=== PATIENT | female | born 2000 | race Hispanic/Latino ===

== ENCOUNTER 2019-09-02 12:27 | Inpatient (IN) | payer MEDICAID, OTHER, SELFPAY ==
--- NOTE | 2019-09-02 13:19 | RAD ---
EXAM: Single view of the chest HISTORY: Weakness and bilateral hand tingling COMPARISON: None FINDINGS: Single view of the chest shows a normal sized cardiomediastinal silhouette. There is no elizabeth dence of consolidation, mass, or pleural effusion. The bones are unremarkable. IMPRESSION: No evidence of acute cardiopulmonary disease
[2019-09-02 13:45] LABS: #Basophils 0.1 thou/uL (0.0-0.2); #Lymphocytes 2.9 thou/uL (1.20-3.40); #Monocytes 0.7 thou/uL (0.11-0.59); #Neutrophils 9.7 thou/uL (1.40-6.50); %Basophils 0.5 % (0.0-1.0); %Eosinophils 0.2 % (0.0-10.0); %Lymphocytes 21.7 % (28.0-48.0); %Monocytes 4.9 % (0.0-4.0); %Neutrophils 72.6 % (31.0-61.0); Hemoglobin 14.9 g/dL (12.0-16.0); Mean Corpuscular HGB CONC 34.4 g/dL (32.0-36.0); Mean Corpuscular Hemoglobin 30.9 pg (25.0-35.0); Mean Corpuscular Volume 89.7 fL (78.0-98.0); Mean Platelet Volume 6.3 fL (7.4-10.4); Platelet Count 377 thou/uL (130-400); RBC Distribution Width 11.2 % (11.5-14.5); Red Blood Cell (RBC) Count 4.82 mill/uL (4.00-5.20); White Blood Cell (WBC) Count 13.3 thou/uL (4.8-10.8)
[2019-09-02 14:08] LABS: Acetaminophen Less than 6.0 mcg/mL (10.0-30.0); Alcohol Less than 10 mg/dL (Less than 10); Salicylate Less than 8.0 mg/dL (15.0-30.0)
[2019-09-02 14:09] LABS: ALT (SGPT) 12 U/L (8-55); AST (SGOT) 12 U/L (5-34); Albumin 4.6 g/dL (3.5-5.0); Alkaline Phosphatase 88 U/L (40-100); Anion Gap 13 mmol/L (10-20); BUN (Urea Nitrogen) 7 mg/dL (7.0-18.7); Bilirubin, Total 0.3 mg/dL (0.2-1.2); CK (CPK) 111 U/L (29-168); Calc. Creatinine Clearance 0 mL/min (70-130); Calcium 9.9 mg/dL (7.8-10.44); Carbon Dioxide 27 mmol/L (22-29); Chloride 102 mmol/L (98-107); Estimated GFR-MDRD 79; Globulin 4.7 g/dL (2.4-3.5); Glucose 91 mg/dL (70-105); Lipase 16 U/L (8-78); Potassium 3.9 mmol/L (3.5-5.1); Protein, Total 9.3 g/dL (6.0-8.3); Sodium 138 mmol/L (136-145)
[2019-09-02 14:10] LABS: BHCG - Serum Negative (NEGATIVE); Pregs Control Background? CLEAR/WHITE (CLR/WHITE); Pregs Control Bar Appear? YES (CONTROL BAR)
[2019-09-02 15:07] LABS: Bilirubin Negative (Negative); Blood, Urine Trace (Negative); Clarity Turbid (Clear); Glucose, Urine (Dipstick) Normal (Negative); Leukocyte Negative Leu/uL (Negative); Nitrite Negative (Negative); Protein, Urine (Dipstick) Negative (Neg-Trace); RBC/HPF 0-3 HPF (0-3); Squamous Epithelial 0-3 HPF (0-3); Urobilinogen Normal mg/dL (Less than 2); WBC/HPF 0-3 HPF (0-3)
[2019-09-02 15:11] LABS: Amphetamine Not Detected (NotDetected); Barbiturates Screen Not Detected (NotDetected); Benzodiazepine Screen Not Detected (NotDetected); Cocaine Metabolite Screen Not Detected (NotDetected); Medtox Control Line Valid? VALID (VALID); Medtox Reader # READER 1; Methadone Not Detected (NotDetected); Methamphetamine Not Detected (NotDetected); Opiate Screen Not Detected (NotDetected); Oxycodone Screen Not Detected (NotDetected); Phencyclidine (PCP) Not Detected (NotDetected); THC/Cannabinoid Screen Not Detected (NotDetected); Tricyclic Screen Not Detected (NotDetected)
[2019-09-02 15:12] LABS: Bacteria/HPF 1+ HPF (None Seen)
--- NOTE | 2019-09-02 21:51 | HP ---
CHIEF COMPLAINT: Numbness in both lower extremities and numbness in both hands. HISTORY OF PRESENT ILLNESS: The patient is a 19-year-old female, who started having some numbness in her lower extremities yesterday and this was not associated with any other problems. She was able to walk. She did not have any fever, chills, cough, or any respiratory tract infection recently. She had heavy periods 3 days ago, which lasted up to 6 days. It was heavier than normal. She woke up this morning with even a numbness in her both feet and she still had the numbness in both lower extremities, which was more pronounced in her both feet. She never had this problem before. She was alarmed about the presentation of those findings and came to the emergency room looking for some medical attention. PAST MEDICAL HISTORY: Positive for migraine headaches, and the last headache she had just a few days ago, which lasted 3 days. PAST SURGICAL HISTORY: None. MEDICATIONS: None. ALLERGIES: NONE. FAMILY HISTORY: Father has hyperlipidemia. Mother is healthy. SOCIAL HISTORY: She drinks alcohol occasionally. She does not smoke. She does not use any illicit drugs. REVIEW OF SYSTEMS: She has heavy periods lasting up to 6 days and she has migraine headaches. All the rest of 14 systems were reviewed and they were negative. PHYSICAL EXAMINATION: GENERAL: She is not in any distress during my visit. VITAL SIGNS: Her blood pressure is 132/90, pulse is 82, she is afebrile, respirations 14. HEENT: Her head is atraumatic and normocephalic. Eyes are PERRLA. Sclerae are nonicteric. Oral mucosa is moist. NECK: Supple. LUNGS: Clear. HEART: S1, S2 normal. No S3. No S4. No any murmur. ABDOMEN: Soft, obese, nontender. Bowel sounds are present. No organomegaly. EXTREMITIES: No clubbing, cyanosis, or edema. She has good pulses on both tibialis posterior and dorsalis pedis arteries similar bilaterally. NEUROLOGICAL: She is alert and oriented x4. There is a decreased sensation in both feet and both hands in [id number] distribution. There is mild weakness in the left thigh compared to the right thigh. She is able to walk with some difficulties complaining about the problem with her both calves. LABORATORY DATA: White count of 13.3, hemoglobin of 14.9, hematocrit 43.3, platelet count is 377, neutrophils 72.6, lymphocytes 21.7, monocytes of 4.9. Normal chemistry except for serum total protein 9.3, which is high. Albumin 4.6, which is normal. Globulin 4.7, which is high, normal is up to 3.5, and albumin to globulin ratio is 1.0. Lipase is 16. TSH is 0.49 and serum test is negative. Urinalysis showed turbid clarity, trace of blood, 1+ amorphous crystals, and 1+ urine bacteria. Otherwise, urinalysis is within normal limits. Toxicology is negative. Plasma alcohol is less than 10 IMAGING STUDIES: Chest x-ray personally reviewed by me, it did not show any acute evidence of cardiopulmonary disease. IMPRESSION: 1. Sudden onset of neuropathy involving both lower extremities and both hands, with some weakness in the left thigh and probably in bilateral calves. Deep tendon reflexes are not there. 2. Elevated total protein in serum and elevated globulin. This is an unclear etiology. PLAN: Plan is to admit her to the Stroke Unit. Condition is fair. Activity is bedrest and bathroom privileges with some assistance, IV Hep-Lock. Serum protein electrophoresis. Neurology consultation with Dr. Benitez who is on-call today and DVT prophylaxis with Lovenox 40 mg subcutaneously every 24 hours. Job ID: [id number]
[2019-09-02] MEDS ORDERED: OCTAGAM IVPB SCH (22:00)
[2019-09-03 00:50] VITALS: BMI 35.9
[2019-09-03 04:56] LABS: #Eosinphils 0.1 thou/uL (0.0-0.7); #Monocytes 0.8 thou/uL (0.11-0.59); #Neutrophils 3.4 thou/uL (1.40-6.50); %Basophils 0.6 % (0.0-1.0); %Eosinophils 1.7 % (0.0-10.0); %Lymphocytes 40.8 % (28.0-48.0); %Monocytes 10.4 % (0.0-4.0); %Neutrophils 46.5 % (31.0-61.0); Hemoglobin 12.2 g/dL (12.0-16.0); Mean Corpuscular HGB CONC 33.8 g/dL (32.0-36.0); Mean Corpuscular Hemoglobin 30.4 pg (25.0-35.0); Mean Corpuscular Volume 90.1 fL (78.0-98.0); Mean Platelet Volume 6.4 fL (7.4-10.4); Platelet Count 331 thou/uL (130-400); RBC Distribution Width 11.2 % (11.5-14.5); Red Blood Cell (RBC) Count 4.01 mill/uL (4.00-5.20); White Blood Cell (WBC) Count 7.4 thou/uL (4.8-10.8)
[2019-09-03] MEDS: Enoxaparin Sodium 40 MG/0.4 ML SYRINGE SC SCH (08:58)
[2019-09-03] MEDS: Acetaminophen 325 MG TAB PO PRN (08:58)
--- NOTE | 2019-09-03 10:20 | CON ---
DATE OF CONSULTATION: 09/03/2019 CONSULTING PHYSICIAN: Hospitalist Service. IMPRESSION: Guillain-[place] syndrome. PLAN: 1. Complete IVIG therapy. 2. The patient can be discharged if she is ambulatory. HISTORY OF PRESENT ILLNESS: Ms. Shepherd is a 19-year-old female with no significant problems. She started noticing some tingling in her feet three days ago. By the next day, she had some tingling in her hands. She started to note some mild weakness. She came to the hospital for evaluation. She was noted to be areflexic. She was started on gammaglobulin yesterday. Her lab work was otherwise normal. She denies any prodromal illness. She is having paresthesias in the hands and feet that are somewhat bothersome. PAST MEDICAL HISTORY: Otherwise negative. ALLERGIES: NONE. SOCIAL HISTORY: No tobacco or alcohol. FAMILY HISTORY: Noncontributory. MEDICINES: None. REVIEW OF SYSTEMS: A 10-system review of systems otherwise negative. PHYSICAL EXAMINATION: GENERAL: She is a well-nourished young woman, in no acute distress. VITAL SIGNS: Blood pressure 128/68, pulse 84, respirations 16, and temperature 98.1. HEENT: Pupils are equal and reactive. Conjunctivae clear. Oropharynx clear. Cranium, normocephalic and atraumatic. NECK: Supple. No lymphadenopathy. EXTREMITIES: No cyanosis or edema. NEUROLOGIC: She was alert and cooperative. Her speech is fluent and clear. Cranial nerves were intact. 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 Sensation was intact proprioception, but alter to light touch. No abnormal movements were seen. Gait was not tested. SUMMARY: This is a young woman, who presented with a sensory motor neuropathy pattern of symptoms consistent with a recent run of similar illnesses that we have been seeing in town this year. She has been started on gammaglobulin and hopefully will turn the corner shortly. I would be happy to follow up with her as an outpatient. Job ID: [id number]
--- NOTE | 2019-09-03 10:36 | PRG ---
DATE OF SERVICE: 09/03/2019 SUBJECTIVE: The patient is seen and examined at the bedside. She does not have much more complaints to offer. There is not much change since yesterday as she still has the same distribution, gloves and socks, numbness. She received her first dose of IVIG last night. OBJECTIVE: VITAL SIGNS: Blood pressure is 128/68, pulse is 84, temperature is 98.1, respiratory rate is 16, O2 saturation is 99% on room air. HEENT: Her head is atraumatic and normocephalic. Eyes are PERRLA. Sclerae are nonicteric. Oral mucosa is moist. NECK: Supple. LUNGS: Clear. HEART: S1 and S2 normal. No S3. No S4. ABDOMEN: Obese, soft, nontender. EXTREMITIES: No clubbing, cyanosis, or edema. NEUROLOGICAL: She is alert and oriented x4. There is decreased sensation in the peripheral parts of her body like hands and feet with mild involvement of the thighs and calves. There is mild general weakness in the lower extremities, which is probably 4/5 bilaterally similar. Deep tendon reflexes are not present. LABORATORY DATA: Normal CBC. IMPRESSION: 1. 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 2. Elevated total protein serum and elevated globulin. We will do serum protein electrophoresis to evaluate this finding. PLAN: The patient received first dose of IVIG yesterday. The case was discussed with Dr. Benitez and neurologist on-call yesterday, and she is going to have a second dose of IVIG tonight. We will do electrophoresis on her serum, and we will continue DVT prophylaxis. Job ID: [id number]
[2019-09-03] MEDS: Gabapentin 300 MG CAP PO SCH ×2 (13:53→22:18)
[2019-09-03] MEDS ORDERED: OCTAGAM IVPB SCH (21:30)
[2019-09-04] MEDS: Enoxaparin Sodium 40 MG/0.4 ML SYRINGE SC SCH (08:13)
[2019-09-04] MEDS: Gabapentin 300 MG CAP PO SCH ×3 (08:13→21:13)
[2019-09-04 12:19] LABS: Bilirubin Negative (Negative); Blood, Urine Trace (Negative); Clarity Turbid (Clear); Glucose, Urine (Dipstick) 500 mg/dL (Negative); Leukocyte Negative Leu/uL (Negative); Nitrite Negative (Negative); Protein, Urine (Dipstick) Negative (Neg-Trace); RBC/HPF 0-3 HPF (0-3); Urobilinogen Normal mg/dL (Less than 2); WBC/HPF 0-3 HPF (0-3)
[2019-09-04 12:31] LABS: Bacteria/HPF 2+ HPF (None Seen)
[2019-09-04 12:32] LABS: Urine Culture Reflex No No
--- NOTE | 2019-09-04 17:20 | PDOC.HOSPP ---
- Subjective Encounter Date: 09/04/19 Encounter Time: 11:18 Subjective: 19 y/o fe,ramila admitted with ascending and progressive numbness and weakness. 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 Patient reports no significant improvement but denioed worsening of symptoms. Get tachycardic and SOB with minimal exertion. Also complains of urinary frequency and urgency - Objective Vital Signs & Weight: Vital Signs (12 hours) Temp Pulse Pulse Pulse Resp BP BP 09/04/19 15:29 98.6 F 112 H 28 H 09/04/19 11:47 97.9 F 118 H 13 09/04/19 09:40 111 H 102 H 136/76 131/67 09/04/19 08:08 09/04/19 07:23 97.8 F 94 19 BP Pulse Ox 09/04/19 15:29 132/80 98 09/04/19 11:47 137/76 98 09/04/19 09:40 09/04/19 08:08 98 09/04/19 07:23 123/66 98 Weight Admit Weight 189 lb 12.8 oz Weight 189 lb 12.8 oz I&O: 09/03/19 09/04/19 09/05/19 06:59 06:59 06:59 Intake Total 960 Balance 960 Result Diagrams: 09/03/19 04:23 09/02/19 13:34 Hospitalist ROS - Medication Medications: Active Medications Generic Name Dose Route Start Last Admin Trade Name Freq PRN Reason Stop Dose Admin Acetaminophen 650 mg 09/02/19 16:21 09/03/19 08:58 Tylenol PO 650 mg Q4H PRN Administration Headache/Fever/Mild Pain (1-3) Enoxaparin Sodium 40 mg 09/03/19 09:00 09/04/19 08:13 Lovenox SC 40 mg 0900 JOE Administration Gabapentin 300 mg 09/03/19 15:00 09/04/19 14:15 Neurontin PO 300 mg TID JOE Administration - Exam General Appearance: awake alert Eye: PERRL, anicteric sclera ENT: normocephalic atraumatic Neck: symmetric, no JVD Heart: RRR Respiratory: no wheezes, no rales, no ronchi, normal chest expansion Gastrointestinal: soft, non-tender, non-distended, normal bowel sounds Extremities: no cyanosis, no edema Neurological: cranial nerve grossly intact, no focal deficits Neurological - other findings: subjective decreased sensation of the lower extremities Musculoskeletal: generalized weakness Psychiatric: A&O x 3 Hosp A/P (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 rehab assessment.
[2019-09-05 05:17] LABS: #Basophils 0.1 thou/uL (0.0-0.2); #Lymphocytes 2.5 thou/uL (1.20-3.40); #Monocytes 0.9 thou/uL (0.11-0.59); #Neutrophils 6.2 thou/uL (1.40-6.50); %Basophils 0.6 % (0.0-1.0); %Eosinophils 0.5 % (0.0-10.0); %Lymphocytes 26.1 % (28.0-48.0); %Monocytes 9.2 % (0.0-4.0); %Neutrophils 63.7 % (31.0-61.0); Hemoglobin 12.8 g/dL (12.0-16.0); Mean Corpuscular HGB CONC 33.3 g/dL (32.0-36.0); Mean Corpuscular Hemoglobin 29.7 pg (25.0-35.0); Mean Corpuscular Volume 89.3 fL (78.0-98.0); Mean Platelet Volume 6.3 fL (7.4-10.4); Platelet Count 361 thou/uL (130-400); RBC Distribution Width 11.2 % (11.5-14.5); Red Blood Cell (RBC) Count 4.31 mill/uL (4.00-5.20); White Blood Cell (WBC) Count 9.7 thou/uL (4.8-10.8)
[2019-09-05 06:00] LABS: ALT (SGPT) 13 U/L (8-55); AST (SGOT) 14 U/L (5-34); Albumin 3.7 g/dL (3.5-5.0); Alkaline Phosphatase 65 U/L (40-100); Anion Gap 12 mmol/L (10-20); BUN (Urea Nitrogen) 10 mg/dL (7.0-18.7); Bilirubin, Total 0.4 mg/dL (0.2-1.2); Calc. Creatinine Clearance 160 mL/min (70-130); Calcium 9.4 mg/dL (7.8-10.44); Carbon Dioxide 24 mmol/L (22-29); Chloride 103 mmol/L (98-107); Estimated GFR-MDRD Greater than 90; Globulin 6.3 g/dL (2.4-3.5); Glucose 88 mg/dL (70-105); Potassium 3.7 mmol/L (3.5-5.1); Sodium 135 mmol/L (136-145)
[2019-09-05] MEDS: Enoxaparin Sodium 40 MG/0.4 ML SYRINGE SC SCH (09:33)
[2019-09-05] MEDS: Gabapentin 300 MG CAP PO SCH ×3 (09:35→22:12)
[2019-09-05] MEDS ORDERED: Bisacodyl 10 MG SUPP PR PRN (12:36)
[2019-09-05 13:10] LABS: A/G Ratio 0.6 (0.7-1.7); Albumin 3.2 g/dL (2.9-4.4); Alpha 1 0.2 g/dL (0.0-0.4); Alpha 2 0.8 g/dL (0.4-1.0); Beta 1.1 g/dL (0.7-1.3); Gamma 3.5 g/dL (0.4-1.8); Globulin, Total 5.7 g/dL (2.2-3.9); M-Spike Not Observed g/dL (Not Observed)
--- NOTE | 2019-09-05 14:08 | CON ---
DATE OF CONSULTATION: 09/05/2019 REASON FOR CONSULTATION: Urinary retention HISTORY OF PRESENT ILLNESS: Ms. Shepherd is a 19-year-old female, Danish-speaking, with no significant past medical history, who presented with 3 -day history of neurologic deficit of tingling of her upper extremities, weakness of her lower extremities and abnormal gait. The patient has been seen by Neurology, is treated for presumed Guillain-[place], currently on IVIG. She was found to have urinary retention per nursing staff. She voided 100, PVR of over 1000 and was advised regarding CIC. She denies prior history of urinary retention. However, does relate history of constipation, family at bedside. She denies prior prodromal illnesses, viral illnesses. Denies prior history of urinary retention. PAST MEDICAL HISTORY: Negative. PAST SURGICAL HISTORY: None. ALLERGIES: NO KNOWN DRUG ALLERGIES. SOCIAL HISTORY: Negative. REVIEW OF SYSTEMS: Ten-point review of systems as above, otherwise noncontributory. PHYSICAL EXAMINATION: VITAL SIGNS: Stable. Urine output 660 per nursing staff, PVR CIC is greater than 1000. GENERAL: The patient appears to be in no acute distress. Family at bedside. HEENT: Grossly unremarkable. HEART: Regular rate. LUNGS: Clear. ABDOMEN: Morbidly obese, protuberant. GENITOURINARY: Demonstrates unremarkable. PELVIC: With no evidence of prolapse. EXTREMITIES: No cyanosis, clubbing, or edema. NEUROLOGIC: She does have an abnormal gait, weakness of her lower extremity is noted. PSYCHIATRIC: Appears to be appropriate and intact. PERTINENT LABORATORY DATA: Currently, white count 9.7, hemoglobin 12, and platelet 261. Creatinine 0.78. There are 2 UAs on admission on September 02 demonstrates 0 to 3 rbc's, 1+ bacteria. Repeat urine culture, I do not know why there is another repeat UA, however, this is likely a catheterized specimen, 500 glucose, trace leukocytes, 7 to 10 epithelials, 2+ bacteria, contaminated specimen. IMAGING DATA: There is no imaging of record. IMPRESSION AND PLAN: 1. Ms. Shepherd is a 19-year-old female with no significant past medical history, who presents with acute onset of neurologic deficit with urinary retention. 2. Constipation. Aggressive bowel regimen is advised. As she has significant PVR over 1 L, I do not recommend CIC. She needs bladder rest with indwelling urethral Damico catheter to gravity. At a later date, I will initiate a voiding trial. If subsequent failure, she will be transitioned to CIC. Please rule out such things as multiple sclerosis, neurologic workup in progress. Consideration for MRI. Aggressive bowel regimen advised. Continue indwelling Damico catheter. We will follow urine culture. Contaminated urine culture does not need to be treated. Renal ultrasound advised. Job ID: [id number] MTDD
--- NOTE | 2019-09-05 15:02 | ULT ---
US Renal Bilateral STANDARD History: Urinary retention Comparison: None. Findings: Real-time grayscale and color evaluation of the kidneys and urinary bladder was performed. Right kidney measures 12.1 x 3.8 x 5.9 cm and the left kidney measures 10.8 x 5 x 6.2 cm. Urinary paula dder is decompressed with Damico catheter. No renal mass, hydronephrosis, or abnormal calcifications. Impression: No evidence for obstructive uropathy.
--- NOTE | 2019-09-05 19:20 | CON ---
DATE OF CONSULTATION: REASON FOR CONSULTATION: Tachycardia. HISTORY OF PRESENT ILLNESS: Ms. Shepherd is a pleasant 19-year-old woman, who recently was diagnosed with Guillain-[place] syndrome. She has had issues with tachycardia noted with little ambulation. She states she does have mild dizziness during these episodes. No chest pain, pressure, or associated symptoms. She states her numbness from the Guillain-[place] appears to slowly be improving. PAST MEDICAL HISTORY: Migraine headaches. PAST SURGICAL HISTORY: None. MEDICATIONS: None. ALLERGIES: NONE. SOCIAL HISTORY: No current tobacco or alcohol use. REVIEW OF SYSTEMS: A 10-point review of systems is reviewed as above, otherwise negative. PHYSICAL EXAMINATION: GENERAL: Patient is a pleasant woman, who is in no acute distress. The patient appears their stated age. VITAL SIGNS: Blood pressure 120/60, pulse 98, and temperature 99.3. NEUROLOGIC: The patient is alert and oriented x3 with no focal neurologic deficits. HEENT: Sclerae without icterus. Mouth has moist mucous membranes with normal pallor. NECK: No JVD. Carotid upstroke brisk. No bruits bilaterally. LUNGS: Clear to auscultation with unlabored respirations. BACK: No scoliosis or kyphosis. CARDIAC: Regular rate and rhythm with normal S1 and S2. No S3 or S4 noted. No significant rubs, murmurs, thrills, or gallops noted throughout the precordium. PMI is not displaced. There is no parasternal heave. ABDOMEN: Soft, nontender, nondistended. No peritoneal signs present. No hepatosplenomegaly. No abnormal striae. EXTREMITIES: 2+ femoral and 2+ dorsalis pedis pulses. No cyanosis, clubbing, or edema. SKIN: No gross abnormalities. PERTINENT LABORATORY DATA: Hemoglobin 12.8 and hematocrit 38.5. Creatinine 0.76. IMPRESSION: 1. Tachycardia. 2. Guillain-[place] syndrome. RECOMMENDATIONS: Certainly unknown complications with Guillain-[place] syndrome on autonomic dysfunction. Most common dysrhythmia is sinus tachycardia. She does appear to have mild symptoms. We will discuss case with Dr. Keith Benitez. We will place on low-dose beta-stanlye therapy, but we will need to be careful with bradycardia. We will observe overnight. Overall, LVEF has appeared normal on recent echo. As her Guillain-[place] syndrome improve so too will her rhythm. Job ID: [id number]
--- NOTE | 2019-09-05 20:35 | PDOC.HOSPP ---
- Subjective Subjective: She reports that she is urinating just a bit at a time, also that her numbness is restricted to her hands and feet, her numbness is persisting, otherwise she has no sob. - Objective Vital Signs & Weight: Vital Signs (12 hours) Temp Pulse Pulse Pulse Resp BP BP 09/05/19 15:14 99.3 F 98 16 09/05/19 11:33 97 106 H 134/66 129/60 09/05/19 11:10 98.1 F 95 20 09/05/19 09:27 09/05/19 08:56 106 H 103 H 139/73 139/81 BP Pulse Ox 09/05/19 15:14 121/60 99 09/05/19 11:33 09/05/19 11:10 127/78 97 09/05/19 09:27 97 09/05/19 08:56 Weight Admit Weight 189 lb 12.8 oz Weight 189 lb 12.8 oz I&O: 09/04/19 09/05/19 09/06/19 06:59 06:59 06:59 Intake Total 960 660 880 Output Total 1975 Balance 960 660 1095 Result Diagrams: 09/05/19 04:50 09/05/19 04:50 Hospitalist ROS - Medication Medications: Active Medications Generic Name Dose Route Start Last Admin Trade Name Andrew PRN Reason Stop Dose Admin Acetaminophen 650 mg 09/02/19 16:21 09/03/19 08:58 Tylenol PO 650 mg Q4H PRN Administration Headache/Fever/Mild Pain (1-3) Enoxaparin Sodium 40 mg 09/03/19 09:00 09/05/19 09:33 Lovenox SC 40 mg 0900 JOE Administration Gabapentin 300 mg 09/03/19 15:00 09/05/19 15:27 Neurontin PO 300 mg TID JOE Administration - Exam General Appearance: awake alert Eye: PERRL ENT: normocephalic atraumatic Neck: supple, symmetric Heart: RRR Respiratory: CTAB Gastrointestinal: soft, non-tender, non-distended Extremities: no cyanosis Neurological: speech deficit Neurological - other findings: slight weakness of LE Hosp A/P - Plan (1) 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 rehab assessment. plan for 09/05 persistent numbness, will continue neurontin and follow neuro recommendation urinary retention, a urology consult was requested. episode of tachycardia, most likely autonomic syndrome, patient is asymptomatic , echo done, Cardio consult requested.
[2019-09-05] MEDS: Docusate 100 MG CAP PO SCH (22:12)
--- NOTE | 2019-09-06 00:44 | PRG ---
DATE OF SERVICE: 09/05/2019 Ms. Shepherd continues to report some generalized weakness. The intensity of the paresthesias is much better. She still feels numb in her extremities. She was noted to have urinary retention. A Damico catheter had to be placed. She becomes tachycardic easily with exertion. She was able to walk with a roller walker today. On exam, she is still getting 4- out of 5 strength in all 4 extremities in a fairly diffuse pattern. Her treatment has been completed and autonomic dysfunction superimposed on her weakness, which complicates her recovery. She does not have any insurance to cover rehab. Therefore, she may have to be monitored here for a bit longer and then dealt with by her family. Job ID: [id number] [facility]
[2019-09-06 05:34] LABS: Anion Gap 14 mmol/L (10-20); BUN (Urea Nitrogen) 10 mg/dL (7.0-18.7); Calc. Creatinine Clearance 165 mL/min (70-130); Calcium 9.5 mg/dL (7.8-10.44); Carbon Dioxide 24 mmol/L (22-29); Chloride 103 mmol/L (98-107); Estimated GFR-MDRD Greater than 90; Glucose 81 mg/dL (70-105); Potassium 3.9 mmol/L (3.5-5.1); Sodium 137 mmol/L (136-145)
--- NOTE | 2019-09-06 08:42 | PRG ---
DATE OF SERVICE: 09/06/2019 SUBJECTIVE: Ms. Shepherd is doing better. She states her numbness continues to improve. Heart rate remains in the 80s. She does have increased heart rate noted with little exertion. OBJECTIVE: VITAL SIGNS: Blood pressure 106/56, pulse 82, temperature 98.1. LUNGS: Clear to auscultation. HEART: Regular rate and rhythm. ABDOMEN: Soft, nontender, nondistended. EXTREMITIES: No edema. IMPRESSION: 1. Guillain-[place] syndrome. 2. Sinus tachycardia with little ambulation. 3. Autonomic dysfunction. RECOMMENDATIONS: I discussed the case with Dr. Keith Benitez. Her main issue is tachycardia with little exertion. She has no episodes of bradycardia. I would therefore recommend low-dose metoprolol 12.5 mg p.o. b.i.d. There was risk of bradycardia with most common dysrhythmia from Guillain-[place] syndrome from an autonomic dysfunction standpoint is tachycardia. We will continue to monitor closely. If she does develop bradycardia, we then discontinue metoprolol. Otherwise, I have no further recommendations. If tolerates the beta stanley, would be okay from my standpoint to discharge home with outpatient followup. Job ID: [id number]
--- NOTE | 2019-09-06 08:57 | PRG ---
DATE OF SERVICE: 09/06/2019 SUBJECTIVE: The patient without complaints. OBJECTIVE: VITAL SIGNS: Stable. Urine output 1975. ABDOMEN: Soft, nontender, nondistended. No rigidity. No rebound. Renal ultrasound negative for hydronephrosis. IMPRESSION AND PLAN: Ms. Shepherd is a 19-year-old female with likely Guillain- [place], presents with neurologic deficit with acute urinary retention of PVR of 1 L. Due to significant PVR, indwelling Damico catheter placed. Continue Damico for now. She will require bladder rest due to significant PVR. Pending clinical course, we will initiate voiding trial in a few days versus outpatient. Urine culture negative. We will follow. Job ID: [id number] MTDD
[2019-09-06] MEDS: Gabapentin 300 MG CAP PO SCH ×3 (09:12→20:43)
[2019-09-06] MEDS: Docusate 100 MG CAP PO SCH ×2 (09:12→20:43)
[2019-09-06] MEDS: Metoprolol Tartrate 25 MG TAB PO SCH ×2 (09:12→20:43)
[2019-09-06] MEDS: Enoxaparin Sodium 40 MG/0.4 ML SYRINGE SC SCH (09:12)
--- NOTE | 2019-09-06 13:43 | PDOC.HOSPP ---
- Subjective Subjective: feels ok, she was concerned about a bit/streaks of blood in the urine. - Objective Vital Signs & Weight: Vital Signs (12 hours) Temp Pulse Resp BP Pulse Ox 09/06/19 11:40 98.8 F 98 20 132/76 95 09/06/19 08:00 98 09/06/19 07:37 98.1 F 82 20 106/56 L 98 09/06/19 04:00 98.1 F 88 16 115/55 L 96 Weight Admit Weight 189 lb 12.8 oz Weight 189 lb 12.8 oz I&O: 09/05/19 09/06/19 09/07/19 06:59 06:59 06:59 Intake Total 660 980 480 Output Total 8395 Balance 660 -4386 480 Result Diagrams: 09/05/19 04:50 09/06/19 04:56 Hospitalist ROS - Medication Medications: Active Medications Generic Name Dose Route Start Last Admin Trade Name Freq PRN Reason Stop Dose Admin Acetaminophen 650 mg 09/02/19 16:21 09/03/19 08:58 Tylenol PO 650 mg Q4H PRN Administration Headache/Fever/Mild Pain (1-3) Docusate Sodium 100 mg 09/05/19 21:00 09/06/19 09:12 Colace PO 100 mg BID JOE Administration Enoxaparin Sodium 40 mg 09/03/19 09:00 09/06/19 09:12 Lovenox SC 40 mg 0900 JOE Administration Gabapentin 300 mg 09/03/19 15:00 09/06/19 09:12 Neurontin PO 300 mg TID JOE Administration Metoprolol Tartrate 12.5 mg 09/06/19 09:00 09/06/19 09:12 Lopressor PO 12.5 mg BID JOE Administration - Exam Eye: PERRL ENT: normocephalic atraumatic Neck: supple Heart: RRR, no murmur Respiratory: CTAB Gastrointestinal: soft Extremities: no cyanosis Neurological: cranial nerve grossly intact Hosp A/P - Plan (1) 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 rehab assessment. plan for 09/05 persistent numbness, will continue neurontin and follow neuro recommendation urinary retention, a urology consult was requested. episode of tachycardia, most likely autonomic syndrome, patient is asymptomatic , echo done, Cardio consult requested. plan for 09/06 seems generally better she was started on metoprolol, remains tachy, we will see if this is still getting worse with activity will be awaiting neuro feed-back and further d/c planning. since she was worried about the streaks of blood ion her urine, and since she is ambulatory, I will stop her lovenox, scd should suffice.
--- NOTE | 2019-09-07 07:54 | PRG ---
DATE OF SERVICE: 09/07/2019 SUBJECTIVE: The patient is doing better. Lower extremity strength is improving , however, continues to have upper extremity weakness. OBJECTIVE: VITAL SIGNS: Stable. She is afebrile. I's and O's; 1650 of urine output, it is christy tinged. No gross hematuria noted. ABDOMEN: Soft, nontender, and nondistended. DIAGNOSTIC DATA: Previous labs of CBC are unremarkable. Renal function on day 11 of 0.7. Renal ultrasound demonstrated no evidence of hydronephrosis. Urine culture demonstrates preliminary negative. 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 Continue indwelling Damico catheter, pending final disposition, I would consider prior to discharge voiding trial. As she has decreased dexterity of her hands, I will hold off teaching her CIC for now. If her mental status and dexterity improves, certainly she is a good candidate for CIC given her young age. Continue indwelling Damico catheter for now. Aggressive treatment of her constipation as this can exacerbate urinary retention. Job ID: [id number] [facility]
[2019-09-07] MEDS: Docusate 100 MG CAP PO SCH ×2 (09:48→22:06)
[2019-09-07] MEDS: Metoprolol Tartrate 25 MG TAB PO SCH ×2 (09:48→22:06)
[2019-09-07] MEDS: Gabapentin 300 MG CAP PO SCH ×3 (09:49→22:06)
--- NOTE | 2019-09-07 11:13 | PDOC.HOSPP ---
- Subjective Subjective: feels better, her father is at he bedside he reports her having tremors whenever she grabs/holds something with her hands, the motricity in her lower extremities is improving . - Objective Vital Signs & Weight: Vital Signs (12 hours) Temp Pulse Resp BP Pulse Ox 09/07/19 07:54 98.1 F 90 14 117/57 L 98 09/07/19 04:00 98.7 F 93 16 119/56 L 97 09/06/19 23:30 99.0 F 117 H 16 124/58 L 97 Weight Admit Weight 189 lb 12.8 oz Weight 189 lb 12.8 oz I&O: 09/06/19 09/07/19 09/08/19 06:59 06:59 06:59 Intake Total 980 720 Output Total 0622 9190 Balance -6935 -020 Result Diagrams: 09/05/19 04:50 09/06/19 04:56 Additional Labs: Accuchecks 09/06/19 20:27 POC Glucose 104 Hospitalist ROS - Medication Medications: Active Medications Generic Name Dose Route Start Last Admin Trade Name Elieq PRN Reason Stop Dose Admin Acetaminophen 650 mg 09/02/19 16:21 09/03/19 08:58 Tylenol PO 650 mg Q4H PRN Administration Headache/Fever/Mild Pain (1-3) Docusate Sodium 100 mg 09/05/19 21:00 09/07/19 09:48 Colace PO 100 mg BID OJE Administration Gabapentin 300 mg 09/03/19 15:00 09/07/19 09:49 Neurontin PO 300 mg TID JOE Administration Metoprolol Tartrate 12.5 mg 09/06/19 09:00 09/07/19 09:48 Lopressor PO 12.5 mg BID JOE Administration - Exam Eye: PERRL ENT: normocephalic atraumatic Neck: supple Heart: RRR, no murmur Respiratory: CTAB, no wheezes Gastrointestinal: soft, non-tender Skin: normal turgor Neurological: cranial nerve grossly intact (the motricity iin her LE is good, handgrip remains weak.) Hosp A/P - Plan (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 rehab assessment. plan for 09/05 persistent numbness, will continue neurontin and follow neuro recommendation urinary retention, a urology consult was requested. episode of tachycardia, most likely autonomic syndrome, patient is asymptomatic , echo done, Cardio consult requested. plan for 09/06 seems generally better she was started on metoprolol, remains tachy, we will see if this is still getting worse with activity will be awaiting neuro feed-back and further d/c planning. since she was worried about the streaks of blood ion her urine, and since she is ambulatory, I will stop her lovenox, scd should suffice. plan for 09/07 seems to be improving. will remove arriola and do a voiding trial. will touch base with Neurology for post dc planning. she is doing better with PT. Her HR is a bit better, we will continue with current dose of metoprolol.
--- NOTE | 2019-09-07 17:52 | CON ---
DATE OF CONSULTATION: 09/07/2019 Ms. Shepherd reports she is not having any pain. She walks 160 feet with a roller walker a day. Her catheter was removed a few hours ago. She is waiting to see if she can pass urine or not at this point. On exam, at this point, she has 4-/5 strength in the upper extremities. Ankle flexion is 4-/5. Plantar flexion, it seems to be 5/5. Her EKG continues to show some sinus tachycardia. She appears relatively improved in strength in her legs, but still remains about the same level of weakness in her upper extremities. Her autonomic dysfunction continues to be notable, but has not caused her to be syncopal when she stands up. Hopefully, she will be able to pass urine independently. If so, she could be transferred home for outpatient therapy. Job ID: [id number]
[2019-09-08 01:42] LABS: Bacteria/HPF 4+ HPF (None Seen); Bilirubin Negative (Negative); Blood, Urine 1+ (Negative); Clarity Turbid (Clear); Glucose, Urine (Dipstick) Normal (Negative); Leukocyte 500 Leu/uL (Negative); Nitrite Negative (Negative); Protein, Urine (Dipstick) 50 mg/dL (Neg-Trace); Squamous Epithelial 0-3 HPF (0-3); Urobilinogen Normal mg/dL (Less than 2); WBC/HPF Greater than 50 HPF (0-3)
[2019-09-08 01:44] LABS: Urine Culture Reflex Yes Yes
[2019-09-08] MEDS: cefTRIAXone\\ROCEPHIN 1 GM in Sodium Chloride 0.9% 100 ML IVPB SCH (02:50)
--- NOTE | 2019-09-08 08:26 | PRG ---
DATE OF SERVICE: 09/08/2019 SUBJECTIVE: The patient continues to be weak, mother at bedside. Voiding diary reviewed. I did remove her Damico catheter for trial of voiding trial in anticipation that she will be discharged this weekend. CIC required for PVR of 700, 650. Initial PVR greater than 1 L. Previous urine culture, September 05, 2019, is negative. IMPRESSION AND PLAN: Ms. Shepherd is a 19-year-old female, admitted for possible Guillain-[place] with neurologic deficit, extremity weakness, acute urinary retention, PVR 1 L, failed voiding trial. will replace indwelling Damico catheter. I did discuss with the patient and mother at bedside regarding options of CIC transitioning at home for bladder rehab. The patient herself is unlikely to cath herself as she has loss of her dexterity. Advised mother regarding herself learning to cath her daughter. Mother requesting indwelling urethral Damico catheter replacement as this is reasonable due to PVR as she continues to have neurologic deficit. If the patient is discharged over the weekend, dc indwelling Damico catheter to leg bag. Outpatient followup for anticipated repeat voiding trial in the next few weeks when her neurologic deficit is improved. [facility] covering me over this weekend for p.r.n. issues. Job ID: [id number] [facility]TDD
[2019-09-08] MEDS: Gabapentin 300 MG CAP PO SCH ×3 (09:43→21:21)
[2019-09-08] MEDS: Docusate 100 MG CAP PO SCH ×2 (09:43→21:21)
[2019-09-08] MEDS: Metoprolol Tartrate 25 MG TAB PO SCH ×2 (09:43→21:21)
--- NOTE | 2019-09-08 20:07 | PDOC.HOSPP ---
- Subjective Subjective: Patient was being prepared to be discharged, discharge summary and discharge meds were done. I was called by RN stating that PT found the patient to be worse then yesterday , discharge was cancelled. - Objective Vital Signs & Weight: Vital Signs (12 hours) Temp Pulse Pulse Pulse Resp BP BP 09/08/19 15:57 98.8 F 93 16 09/08/19 13:22 101 H 105 H 137/90 129/68 09/08/19 11:57 99.1 F 88 16 BP Pulse Ox 09/08/19 15:57 118/62 95 09/08/19 13:22 09/08/19 11:57 118/62 96 Weight Admit Weight 189 lb 12.8 oz Weight 189 lb 12.8 oz I&O: 09/07/19 09/08/19 09/09/19 06:59 06:59 06:59 Intake Total 720 1540 480 Output Total 1650 2000 700 Balance -930 -460 -220 Result Diagrams: 09/05/19 04:50 09/06/19 04:56 Hospitalist ROS - Medication Medications: Active Medications Generic Name Dose Route Start Last Admin Trade Name Freq PRN Reason Stop Dose Admin Acetaminophen 650 mg 09/02/19 16:21 09/03/19 08:58 Tylenol PO 650 mg Q4H PRN Administration Headache/Fever/Mild Pain (1-3) Docusate Sodium 100 mg 09/05/19 21:00 09/08/19 09:43 Colace PO 100 mg BID JOE Administration Gabapentin 300 mg 09/03/19 15:00 09/08/19 15:35 Neurontin PO 300 mg TID JOE Administration Ceftriaxone Sodium 1 gm/ 100 mls @ 200 mls/hr 09/08/19 02:00 09/08/19 02:50 Sodium Chloride IVPB 100 mls Q24HR JOE Administration Metoprolol Tartrate 12.5 mg 09/06/19 09:00 09/08/19 09:43 Lopressor PO 12.5 mg BID JOE Administration - Exam General Appearance: NAD Eye: PERRL ENT: normocephalic atraumatic Neck: supple, symmetric Heart: RRR, no murmur Respiratory: CTAB, no wheezes Gastrointestinal: soft, non-tender Extremities: no cyanosis, no clubbing Hosp A/P - Plan (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 rehab assessment. plan for 09/05 persistent numbness, will continue neurontin and follow neuro recommendation urinary retention, a urology consult was requested. episode of tachycardia, most likely autonomic syndrome, patient is asymptomatic , echo done, Cardio consult requested. plan for 09/06 seems generally better she was started on metoprolol, remains tachy, we will see if this is still getting worse with activity will be awaiting neuro feed-back and further d/c planning. since she was worried about the streaks of blood ion her urine, and since she is ambulatory, I will stop her lovenox, scd should suffice. plan for 09/07 seems to be improving. will remove arriola and do a voiding trial. will touch base with Neurology for post dc planning. she is doing better with PT. Her HR is a bit better, we will continue with current dose of metoprolol. plan for today 09/08 She was supposed to be discharged but PT reported that she is weaker then yesterday. It was then reported that overnight she required a wheelchair to go back to her bed ( after going to the bathroom ) I contacted Neuro, recommendation to not change the current management. Since she does not feel comfortable to go home, we cancelled her discharge
[2019-09-09] MEDS: cefTRIAXone\\ROCEPHIN 1 GM in Sodium Chloride 0.9% 100 ML IVPB SCH (03:15)
[2019-09-09] MEDS: Metoprolol Tartrate 25 MG TAB PO SCH ×2 (07:58→20:42)
[2019-09-09] MEDS: Docusate 100 MG CAP PO SCH ×2 (07:58→20:42)
[2019-09-09] MEDS: Gabapentin 300 MG CAP PO SCH ×3 (07:59→20:42)
--- NOTE | 2019-09-09 14:49 | PDOC.HOSPP ---
- Subjective Subjective: Seen and examined. Patient still with generalized weakness. She states that she felt like her legs are getting stronger however the strength in her hands and arms has yet to come back. Patient was neurogenic bladder with Damico catheter in place. Urology in the case recommending transition to leg bag on D/c. Patient seems depressed and defeated, I discussed with her about how depression has an increased incidence in severe illness. I briefly counseled the patient and offered antidepressant therapy. Patient declines depression and not interested in antidepressant medication at this time. I recommended that she think about it more and let me know if she changes her mind. - Objective Vital Signs & Weight: Vital Signs (12 hours) Temp Pulse Pulse Pulse Pulse Resp BP 09/09/19 12:00 99.2 F 95 16 09/09/19 11:56 160 H 110 H 105 H 136/82 09/09/19 08:00 98.8 F 99 16 09/09/19 03:43 98.3 F 85 16 BP BP Pulse Ox 09/09/19 12:00 131/67 97 09/09/19 11:56 137/74 09/09/19 08:00 137/61 97 09/09/19 03:43 120/76 98 Weight Admit Weight 189 lb 12.8 oz Weight 189 lb 12.8 oz I&O: 09/08/19 09/09/19 09/10/19 06:59 06:59 06:59 Intake Total 1540 1200 120 Output Total 2000 1350 Balance -460 -150 120 Result Diagrams: 09/05/19 04:50 09/06/19 04:56 Radiology Reviewed by me: Yes Hospitalist ROS - Review of Systems All other systems reviewed; all pertinent +/- noted in HPI/Subj - Medication Medications: Active Medications Generic Name Dose Route Start Last Admin Trade Name Freq PRN Reason Stop Dose Admin Acetaminophen 650 mg 09/02/19 16:21 09/03/19 08:58 Tylenol PO 650 mg Q4H PRN Administration Headache/Fever/Mild Pain (1-3) Docusate Sodium 100 mg 09/05/19 21:00 09/09/19 07:58 Colace PO 100 mg BID JOE Administration Gabapentin 300 mg 09/03/19 15:00 09/09/19 14:29 Neurontin PO 300 mg TID JOE Administration Ceftriaxone Sodium 1 gm/ 100 mls @ 200 mls/hr 09/08/19 02:00 09/09/19 03:15 Sodium Chloride IVPB 100 mls Q24HR JOE Administration Metoprolol Tartrate 12.5 mg 09/06/19 09:00 09/09/19 07:58 Lopressor PO 12.5 mg BID JOE Administration Sodium Chloride 10 ml 09/08/19 07:26 09/08/19 21:21 Flush - Normal Saline IVF 10 ml PRN PRN Administration Saline Flush - Exam General Appearance: NAD, awake alert Eye: PERRL, anicteric sclera ENT: normocephalic atraumatic, moist mucosa Neck: supple, symmetric, no lymphadenopathy Heart: RRR, no murmur, no gallops, no rubs, normal peripheral pulses Respiratory: CTAB, no wheezes, no rales, no ronchi, normal chest expansion, no tachypnea Gastrointestinal: soft, non-tender, no guarding, no rigidity Extremities: no edema Skin: no lesions, no rashes Neurological: cranial nerve grossly intact, no new deficit Neurological - other findings: Generalized weakness Bilat UE > LE Musculoskeletal: generalized weakness Psychiatric: normal behavior, A&O x 3, flat affect (depressed mood) Hosp A/P (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 - GUILLAIN-BARRE SYNDROME Status: Acute (2) Quadriparesis Code(s): G82.50 - QUADRIPLEGIA, UNSPECIFIED Status: Acute (3) Neurogenic bladder Code(s): N31.9 - NEUROMUSCULAR DYSFUNCTION OF BLADDER, UNSPECIFIED Status: Acute (4) Viral illness Status: Acute (5) Tachycardia Code(s): R00.0 - TACHYCARDIA, UNSPECIFIED Status: Acute (6) Urinary frequency Code(s): R35.0 - FREQUENCY OF MICTURITION Status: Acute - Plan Plan: neurology consultation, recommendations appreciated urology consultation, recommendations appreciated physical therapy/occupational therapy evaluation and treatment status post IV IG for Guillian barre syndrome with some clinical improvement in motor strength Urinary tract infection with E. coli, sensitive to current antibiotics will de-escalate antibiotics to oral regimen on discharge patient with neurogenic bladder, Damico catheter in place will require outpatient follow-up with urology for Damico catheter, bladder training continue other medications as able DVT PPX disposition: if the patient does not have significant improvement, short course of rehabilitation may be required to regain her physical strength and independence.
[2019-09-09] MEDS: Acetaminophen 325 MG TAB PO PRN (16:35)
[2019-09-10] MEDS: cefTRIAXone\\ROCEPHIN 1 GM in Sodium Chloride 0.9% 100 ML IVPB SCH (05:05)
[2019-09-10] MEDS: Gabapentin 300 MG CAP PO SCH ×3 (08:57→20:41)
[2019-09-10] MEDS: Metoprolol Tartrate 25 MG TAB PO SCH ×2 (08:57→20:41)
[2019-09-10] MEDS: Docusate 100 MG CAP PO SCH ×2 (08:57→20:41)
[2019-09-10] MEDS: Acetaminophen 325 MG TAB PO PRN ×2 (08:57→18:51)
--- NOTE | 2019-09-10 14:33 | PDOC.HOSPP ---
- Subjective Subjective: Seen and examined. Patient still with generalized weakness, she states that she thinks he is improving. Patient's mother bedside, all questions answered in detail. Patient appears clinically depressed, I again offered antidepressant therapy the patient and her daughter declined this. - Objective Vital Signs & Weight: Vital Signs (12 hours) Temp Pulse Resp BP Pulse Ox 09/10/19 12:00 97.4 F L 78 13 114/64 97 09/10/19 08:06 98.2 F 68 12 118/63 97 09/10/19 07:50 97 09/10/19 03:47 98.1 F 72 16 129/71 97 Weight Admit Weight 189 lb 12.8 oz Weight 189 lb 12.8 oz I&O: 09/09/19 09/10/19 09/11/19 06:59 06:59 06:59 Intake Total 1200 240 600 Output Total 1350 2350 1200 Balance -150 -4130 -600 Result Diagrams: 09/05/19 04:50 09/06/19 04:56 Radiology Reviewed by me: Yes Hospitalist ROS - Review of Systems All other systems reviewed; all pertinent +/- noted in HPI/Subj - Medication Medications: Active Medications Generic Name Dose Route Start Last Admin Trade Name Freq PRN Reason Stop Dose Admin Acetaminophen 650 mg 09/02/19 16:21 09/10/19 08:57 Tylenol PO 650 mg Q4H PRN Administration Headache/Fever/Mild Pain (1-3) Docusate Sodium 100 mg 09/05/19 21:00 09/10/19 08:57 Colace PO 100 mg BID JOE Administration Gabapentin 300 mg 09/03/19 15:00 09/10/19 08:57 Neurontin PO 300 mg TID JOE Administration Ceftriaxone Sodium 1 gm/ 100 mls @ 200 mls/hr 09/08/19 02:00 09/10/19 05:05 Sodium Chloride IVPB 100 mls Q24HR JOE Administration Metoprolol Tartrate 12.5 mg 09/06/19 09:00 09/10/19 08:57 Lopressor PO 12.5 mg BID JOE Administration Sodium Chloride 10 ml 09/08/19 07:26 09/08/19 21:21 Flush - Normal Saline IVF 10 ml PRN PRN Administration Saline Flush - Exam General Appearance: NAD, awake alert Eye: anicteric sclera ENT: normocephalic atraumatic, moist mucosa Neck: supple, symmetric, no lymphadenopathy Heart: RRR, no murmur, no gallops, no rubs Respiratory: CTAB, no wheezes, no rales, no ronchi, no tachypnea Gastrointestinal: non-tender, no guarding, no rigidity Extremities: no clubbing, no edema Skin: no lesions, no rashes Neurological: no new deficit Neurological - other findings: Generalized weakness persists. 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 - GUILLAIN-BARRE SYNDROME Status: Acute (2) Quadriparesis Code(s): G82.50 - QUADRIPLEGIA, UNSPECIFIED Status: Acute (3) Neurogenic bladder Code(s): N31.9 - NEUROMUSCULAR DYSFUNCTION OF BLADDER, UNSPECIFIED Status: Acute (4) Viral illness Status: Acute (5) Tachycardia Code(s): R00.0 - TACHYCARDIA, UNSPECIFIED Status: Acute (6) Urinary frequency Code(s): R35.0 - FREQUENCY OF MICTURITION Status: Acute - Plan Plan: neurology consultation, recommendations appreciated urology consultation, recommendations appreciated physical therapy/occupational therapy evaluation and treatment status post IV IG for Guillian barre syndrome with some clinical improvement in motor strength Urinary tract infection with E. coli, sensitive to current antibiotics will de-escalate antibiotics to oral regimen on discharge patient with neurogenic bladder, Damico catheter in place will require outpatient follow-up with urology for Damico catheter, bladder training continue other medications as able DVT PPX Clinically depressed, offered antidepressant, patient and her mother not interested at this time Disposition: if the patient does not have significant improvement, short course of rehabilitation may be required to regain her physical strength and independence.
--- NOTE | 2019-09-10 22:28 | RAD ---
XR Elbow Lt 4 View STANDARD INDICATION: Elbow pain and injury FINDINGS: Bones: No acute fracture or subluxation is evident.. Joints: No joint capsular distention. Radiocapitellar alignment appears within normal limits. Soft tissues: No radiopaque foreign body is evident. IMPRESSION: No acute osseous abnormality.
[2019-09-11] MEDS: cefTRIAXone\\ROCEPHIN 1 GM in Sodium Chloride 0.9% 100 ML IVPB SCH (02:06)
--- NOTE | 2019-09-11 07:51 | PRG ---
DATE OF SERVICE: 09/11/2019 SUBJECTIVE: The patient resting, vital signs are stable. Afebrile. Per nursing staff, limited mobility. Continues to be weak in extremities. OBJECTIVE: VITAL SIGNS: Stable, currently on Rocephin for positive urine culture per hospitalist. ABDOMEN: Soft, nontender, and nondistended. GENITOURINARY: Damico catheter demonstrating concentrated yellow urine. PERTINENT LABORATORY DATA: Urine culture, E coli resistant to ampicillin, currently on Rocephin. Otherwise, pansensitive. No new labs. Renal function stable at 0.7. IMPRESSION AND PLAN: A 19-year-old female with neurologic deficits secondary to Guillain-[place], urinary retention, currently has indwelling Damico catheter to PVR of about 1 L. Continues to be in-house due to ongoing weakness, disposition pending. patient will likely require rehab due to ongoing lower extremity weakness, limited mobility. Continue indwelling Damico catheter. I gave her an appointment with me this Wednesday, as discharge was anticipated. Anticipate rehab, Case Management consultation pending.can change to AILYN rene from standpoint Job ID: [id number] MTDD
--- NOTE | 2019-09-11 08:13 | ULT ---
Venous duplex sonogram left upper extremity HISTORY: Left arm pain and edema. FINDINGS: The left internal jugular vein and subclavian vein were evaluated along with the axillary, brachial, and cephalic veins. Basilic vein not well visualized. Good color and spectral Doppler flow. Good compression where possible. IMPRESSION: No sonographic evidence of DVT within the left upper extremity.
[2019-09-11] MEDS: Gabapentin 300 MG CAP PO SCH ×3 (09:56→20:35)
[2019-09-11] MEDS: Metoprolol Tartrate 25 MG TAB PO SCH ×2 (09:56→20:34)
[2019-09-11] MEDS: Docusate 100 MG CAP PO SCH ×2 (09:56→20:35)
--- NOTE | 2019-09-11 11:52 | DIS ---
DATE OF ADMISSION: 09/02/2019 DATE OF DISCHARGE: 09/11/2019 HISTORY OF PRESENT ILLNESS/HOSPITAL COURSE: This is a 19-year-old female patient who was admitted on 09/02/2019, for numbness in both lower extremities and both hands that started the day before her presentation. She was not able to walk. On physical examination, she has decreased sensation in both feet and both hands in glove and stocking distribution. She had mild weakness in the left thigh compared to the right thigh. She was able to walk, but with difficulty. The patient was admitted to stroke unit, Neurology was consulted. Their impression was that she presented with sensory motor neuropathy pattern. They did start her on gammaglobulin, she received 2 doses of that. The patient was noted to be tachycardic at rest and on exertion. An echocardiogram was done that showed normal ejection fraction. Cardiology consultation was placed. Their impression was that she has autonomic dysfunction that goes with her neurological presentation and she was placed on a low-dose beta stanley. Her heart rate improved, but she remained tachycardic on activity; but on the other hand, the patient was not symptomatic, she did not complain of shortness of breath and no chest pain, the plan was for her to follow with Cardiology as an outpatient. During her stay, she developed urinary retention. Urology was called and a Damico catheter was placed. Yesterday, we attempted a void trial, but she failed as we had to reinsert her Damico catheter. She will be discharged with that to follow with Urology as an outpatient. Urinalysis was done yesterday and it was positive for infection. She was started on IV Rocephin, she will be discharged on oral antibiotics. Day-by-day, her strength improved mainly in her lower extremities. She still complained of weakness in her upper extremities. She remained somewhat tachycardic, but with no other symptoms. The patient is to be discharged home and follow Neurology as an outpatient. Also, she needs to follow with Urology for a repeat voiding trial in the next few weeks when her neurological deficit is improved. Job ID: [id number]
[2019-09-11] MEDS ORDERED: predniSONE 20 MG TAB PO SCH (12:00)
--- NOTE | 2019-09-11 12:46 | PDOC.HOSPP ---
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 Initially tx with IVIG x 2 doses and improved but now with worsening weakness and inability to stand/walk. No fever or chills, no recent immunizations. Appetite ok. No prior health problems. - Objective Vital Signs & Weight: Vital Signs (12 hours) Temp Pulse Resp BP BP Pulse Ox 09/11/19 11:34 98.5 F 96 12 127/70 96 09/11/19 08:59 97 09/11/19 07:37 97.2 F L 91 12 142/81 H 97 09/11/19 04:00 98.7 F 94 16 133/71 96 Weight Admit Weight 189 lb 12.8 oz Weight 189 lb 12.8 oz I&O: 09/10/19 09/11/19 09/12/19 06:59 06:59 06:59 Intake Total 240 2570 300 Output Total 2350 3200 450 Balance -1555 -630 150 Result Diagrams: 09/05/19 04:50 09/06/19 04:56 Additional Labs: Laboratory Tests 09/02/19 09/03/19 13:34 11:08 Serum Total Protein 9.3 H Total Protein (ALEA) 8.9 H EKG Reviewed by me: Yes (Tele - SR) Hospitalist ROS - Medication Medications: Active Medications Generic Name Dose Route Start Last Admin Trade Name Freq PRN Reason Stop Dose Admin Acetaminophen 650 mg 09/02/19 16:21 09/10/19 18:51 Tylenol PO 650 mg Q4H PRN Administration Headache/Fever/Mild Pain (1-3) Docusate Sodium 100 mg 09/05/19 21:00 09/11/19 09:56 Colace PO 100 mg BID JOE Administration Gabapentin 300 mg 09/03/19 15:00 09/11/19 09:56 Neurontin PO 300 mg TID JOE Administration Ceftriaxone Sodium 1 gm/ 100 mls @ 200 mls/hr 09/08/19 02:00 09/11/19 02:06 Sodium Chloride IVPB 100 mls Q24HR JOE Administration Metoprolol Tartrate 12.5 mg 09/06/19 09:00 09/11/19 09:56 Lopressor PO 12.5 mg BID JOE Administration Prednisone 40 mg 09/11/19 12:00 09/11/19 12:19 Prednisone PO 09/11/19 14:00 40 mg NOW JOE Administration Sodium Chloride 10 ml 09/08/19 07:26 09/11/19 02:06 Flush - Normal Saline IVF 10 ml PRN PRN Administration Saline Flush - Exam General Appearance: NAD, awake alert Eye: PERRL, anicteric sclera ENT: normocephalic atraumatic, no oropharyngeal lesions Neck: supple, symmetric, no JVD, no thyromegaly Heart: RRR, no murmur, no gallops, no rubs, normal peripheral pulses Respiratory: CTAB, no wheezes, no rales, no ronchi, normal chest expansion Gastrointestinal: soft, non-tender, non-distended, normal bowel sounds, no palpable masses Extremities: no cyanosis, no clubbing, no edema Skin: normal turgor, no lesions Neurological: cranial nerve grossly intact Musculoskeletal: generalized weakness Musculoskeletal - other findings: strength 2/5 in bilat U/LE's Psychiatric: normal affect, A&O x 3 Hosp A/P (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 Transfer to higher level of care for Neuro evaluation AM lab: FT4, Mg++, B12/Folate
[2019-09-11] MEDS ORDERED: Fluconazole 100 MG TAB PO SCH (13:15)
--- NOTE | 2019-09-11 15:12 | PRG ---
DATE OF SERVICE: 09/11/2019 SUBJECTIVE: Ms. Shepherd' neurologic status appears to have worsened. She appears to be more ataxic and weak. Her father is present. He states she has difficulty in sitting up. From a CV standpoint, her rate is much more stable on low-dose beta-stanley therapy. Heart rate has really been above 100. OBJECTIVE: VITAL SIGNS: Blood pressure 127/70, pulse 96, and temperature 98.5. LUNGS: Clear to auscultation. HEART: Regular rate and rhythm. ABDOMEN: Soft, nontender, nondistended. EXTREMITIES: No edema. IMPRESSION: 1. Guillain-[place] syndrome. 2. Tachycardia. RECOMMENDATIONS: At this point, I would not recommend any further changes in beta-stanley therapy. She appears stable. Guillain-[place] syndrome from a CV standpoint can cause tachy and bradycardia. At this point, she appears stable. She may need further neurologic opinion on how to proceed, given worsening symptoms. She does appear worse today than she has over last 4 days. I have been absent since Wednesday of last week. We will reach out to Hospitalist. Otherwise, from my standpoint, I have no further recommendations. We will continue low-dose beta-stanley therapy. Please re-consult from a CV standpoint if needed. Job ID: [id number]
--- NOTE | 2019-09-11 18:05 | MRI ---
MRI BRAIN WITH AND WITHOUT CONTRAST: Indications: Polyneuropathy. Comparison: None. FINDINGS: The ventricles have normal size and position. There is no evidence of restricted diffusion. No mass o r edema. No white matter abnormality. No abnormal enhancement. There is abnormal signal in the right maxillary sinus, right ethmoid air cells and frontal air cells, more prominent in the right frontal sinus indicating diffuse paranasal sinus mucosal disease. IMPRESSION: 1. No acute intracranial abnormality. 2. Paranasal sinus mucosal disease, more prominent on the right as described. POS: OFF
[2019-09-12] MEDS: cefTRIAXone\\ROCEPHIN 1 GM in Sodium Chloride 0.9% 100 ML IVPB SCH (02:50)
--- NOTE | 2019-09-12 07:12 | PRG ---
DATE OF SERVICE: 09/12/2019 SUBJECTIVE: The patient resting, mother at bedside. OBJECTIVE: VITAL SIGNS: Stable. She is afebrile. Damico catheter remains in situ with 1600 urine. ABDOMEN: Soft, nontender, nondistended. LABORATORY DATA: No new labs. Imaging reviewed, which demonstrates brain MRI negative, upper extremity ultrasound negative for DVT. IMPRESSION AND PLAN: A 19-year-old female with history of possible Guillain-[place], with neurologic deficit with acute urinary retention. Continue indwelling Damico catheter if she continues to have generalized weakness. Pending disposition. We will consider repeat voiding trial versus outpatient followup for voiding trial. Disposition pending as she continues to have neurologic deficit with no significant progress. Job ID: [id number]
[2019-09-12] MEDS: Fluconazole 100 MG TAB PO SCH (09:22)
[2019-09-12] MEDS: Docusate 100 MG CAP PO SCH ×2 (09:22→22:04)
[2019-09-12] MEDS: predniSONE 20 MG TAB PO SCH (09:22)
[2019-09-12] MEDS: Gabapentin 300 MG CAP PO SCH ×3 (09:22→22:04)
[2019-09-12] MEDS: Metoprolol Tartrate 25 MG TAB PO SCH ×2 (09:22→22:04)
--- NOTE | 2019-09-12 19:04 | PDOC.HOSPP ---
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 Received IVIG x 2 doses initially and currently Prednisone 40mg x 2 doses. Remains weak and tremulous. No respiratory compromise. Nursing noted increased tachycardia despite Metoprolol. - Objective Vital Signs & Weight: Vital Signs (12 hours) Temp Pulse Pulse Pulse Resp BP BP 09/12/19 16:00 99.0 F 120 H 13 09/12/19 13:10 108 H 99 150/82 H 09/12/19 11:24 98.7 F 95 16 09/12/19 08:45 135/62 09/12/19 07:40 09/12/19 07:37 98.0 F 91 14 BP BP Pulse Ox 09/12/19 16:00 135/78 98 09/12/19 13:10 130/73 09/12/19 11:24 131/79 97 09/12/19 08:45 09/12/19 07:40 97 09/12/19 07:37 135/62 98 Weight Admit Weight 189 lb 12.8 oz Weight 189 lb 12.8 oz I&O: 09/11/19 09/12/19 09/13/19 06:59 06:59 06:59 Intake Total 2570 600 900 Output Total 3200 2000 800 Balance -630 -1400 100 Result Diagrams: 09/05/19 04:50 09/06/19 04:56 Additional Labs: Laboratory Tests 09/02/19 09/03/19 09/12/19 13:34 11:08 04:28 Magnesium Serum Total Protein 9.3 H Vitamin B12 Folate Free T4 1.10 Total Protein (ALEA) 8.9 H 09/12/19 09/12/19 09/12/19 04:28 04:28 04:28 Magnesium 2.0 Serum Total Protein Vitamin B12 563 Folate 8.80 Free T4 Total Protein (ALEA) EKG Reviewed by me: Yes (Tele - Sinus tachycardia) Hospitalist ROS - Medication Medications: Active Medications Generic Name Dose Route Start Last Admin Trade Name Freq PRN Reason Stop Dose Admin Acetaminophen 650 mg 09/02/19 16:21 09/10/19 18:51 Tylenol PO 650 mg Q4H PRN Administration Headache/Fever/Mild Pain (1-3) Bisacodyl 10 mg 09/05/19 12:36 09/12/19 09:22 Dulcolax AR 10 mg DAILYPRN PRN Administration Constipation Docusate Sodium 100 mg 09/05/19 21:00 09/12/19 09:22 Colace PO 100 mg BID JOE Administration Fluconazole 100 mg 09/12/19 09:00 09/12/19 09:22 Diflucan PO 100 mg DAILY JOE Administration Gabapentin 300 mg 09/03/19 15:00 09/12/19 14:55 Neurontin PO 300 mg TID JOE Administration Ceftriaxone Sodium 1 gm/ 100 mls @ 200 mls/hr 09/08/19 02:00 09/12/19 02:50 Sodium Chloride IVPB 100 mls Q24HR JOE Administration Prednisone 40 mg 09/12/19 08:00 09/12/19 09:22 Prednisone PO 40 mg QAM-WM JOE Administration Sodium Chloride 10 ml 09/08/19 07:26 09/11/19 02:06 Flush - Normal Saline IVF 10 ml PRN PRN Administration Saline Flush - Exam General Appearance: NAD, awake alert Eye: PERRL, anicteric sclera ENT: normocephalic atraumatic, no oropharyngeal lesions Neck: supple, symmetric, no JVD, no thyromegaly Heart - other findings: tachycardic Respiratory: CTAB, no wheezes, no rales Gastrointestinal: soft, non-tender, non-distended, normal bowel sounds, no palpable masses Extremities: no cyanosis, no clubbing, no edema Skin: normal turgor, no lesions Neurological: cranial nerve grossly intact Musculoskeletal: generalized weakness Musculoskeletal - other findings: 2/5 strength, diminished DTR's in LE's Psychiatric: normal affect, A&O x 3 Hosp A/P (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
--- NOTE | 2019-09-13 00:46 | CON ---
DATE OF CONSULTATION: 09/12/2019 Ms. Shepherd reports that she has gotten weaker since last week. On exam, there is no evidence of bulbar weakness present. She has essentially 4- at best strength in both upper and lower extremities. Her subjective sensory deficits remain stable. She has not been able to walk with physical therapy. She was started on prednisone yesterday at 40 mg a day. 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 Hopefully, she will turn the corner in a few days with steroids. I would be happy to continue to follow in her care. Job ID: [id number]
[2019-09-13] MEDS: cefTRIAXone\\ROCEPHIN 1 GM in Sodium Chloride 0.9% 100 ML IVPB SCH (01:36)
--- NOTE | 2019-09-13 08:09 | PRG ---
DATE OF SERVICE: 09/13/2019 SUBJECTIVE: The patient without new complaints. OBJECTIVE: VITAL SIGNS: Stable. Afebrile. Urine output via Damico is clear. ABDOMEN: Soft, nontender, nondistended. LABORATORY DATA: No new labs. IMPRESSION AND PLAN: 1. Ms. Shepherd is a 19-year-old female who presented with acute generalized weakness. 2. No significant progress and improvement. 3. Urinary retention with 1 L PVR. Continue indwelling Damico catheter. Hospitalist notes reviewed, primary service considering transfer to higher level center which is reasonable. No new recommendations. Continue indwelling Damico catheter. Job ID: [id number]
[2019-09-13] MEDS: predniSONE 20 MG TAB PO SCH (09:07)
[2019-09-13] MEDS: Docusate 100 MG CAP PO SCH ×2 (09:07→20:19)
[2019-09-13] MEDS: Gabapentin 300 MG CAP PO SCH ×3 (09:07→20:19)
[2019-09-13] MEDS: Metoprolol Tartrate 25 MG TAB PO SCH ×2 (09:07→20:20)
[2019-09-13] MEDS: Fluconazole 100 MG TAB PO SCH (09:07)
--- NOTE | 2019-09-13 17:36 | MRI ---
MRI OF LUMBAR SPINE WITH AND WITHOUT CONTRAST: 09/13/19 INDICATIONS: Polyneuropathy. FINDINGS: The lumbar vertebrae maintain normal height and alignment. Disc spaces are normally maintained and ex hibit normal T2 signal. There is no evidence of disc bulge or disc protrusion at any of the lumbar le vels. There is no central canal or foraminal stenosis. No abnormal enhancement. IMPRESSION: Unremarkable MRI of lumbar spine. POS: OFF
--- NOTE | 2019-09-13 17:38 | MRI ---
MRI THORACIC SPINE WITH AND WITHOUT CONTRAST: 09/13/19 Multiplanar and multisequential imaging of the thoracic spine obtained. INDICATIONS: Polyneuropathy. FINDINGS: The thoracic vertebrae maintain normal height and alignment. Disc spaces are normally maintained. Precious tebral bodies exhibit normal signal. There is no evidence of disc bulge or disc protrusion seen at an y of the thoracic levels. Thoracic cord appears unremarkable. No abnormal enhancement. IMPRESSION: Unremarkable MRI of thoracic spine. POS: OFF
--- NOTE | 2019-09-13 17:41 | MRI ---
MRI CERVICAL SPINE WITH AND WITHOUT CONTRAST: 09/13/19 INDICATIONS: Polyneuropathy. Cervical vertebrae maintain normal height and alignment. Disc space is normally maintained. There is no evidence of disc bulge or disc protrusion. 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 T his measures approximately 1.0 cm craniocaudal in length in their sagittal projection. There is no ab normal enhancement seen within the cord. No other evidence of cord lesion. IMPRESSION: Small syrinx within the cervical cord at the C6 level. No other cord abnormality identified. MRI cerv ical spine is otherwise unremarkable. POS: OFF
--- NOTE | 2019-09-13 18:06 | PDOC.HOSPP ---
- Subjective Encounter Date: 09/13/19 Encounter Time: 18:05 Subjective: f/u for suspected GBS tx with 2 doses IVIG and now receiving Prednisone 40mg daily x 3 doses. Still remains weak, unable to stand. MRI brain negative. - Objective Vital Signs & Weight: Vital Signs (12 hours) Temp Pulse Pulse Pulse Resp BP BP 09/13/19 17:06 98.2 F 111 H 22 H 09/13/19 14:11 108 H 133/75 09/13/19 11:27 98.2 F 101 H 16 09/13/19 11:22 97 131/77 09/13/19 07:40 09/13/19 07:35 97.5 F L 85 16 BP BP Pulse Ox 09/13/19 17:06 132/73 96 09/13/19 14:11 09/13/19 11:27 131/77 96 09/13/19 11:22 09/13/19 07:40 96 09/13/19 07:35 113/68 96 Weight Admit Weight 189 lb 12.8 oz Weight 189 lb 12.8 oz I&O: 09/12/19 09/13/19 09/14/19 06:59 06:59 06:59 Intake Total 600 1120 600 Output Total 2000 1450 1500 Balance -1400 -330 -900 Result Diagrams: 09/05/19 04:50 09/06/19 04:56 Additional Labs: Laboratory Tests 09/02/19 09/03/19 09/12/19 13:34 11:08 04:28 Magnesium Serum Total Protein 9.3 H Vitamin B12 Folate Free T4 1.10 Total Protein (ALEA) 8.9 H 09/12/19 09/12/19 09/12/19 04:28 04:28 04:28 Magnesium 2.0 Serum Total Protein Vitamin B12 563 Folate 8.80 Free T4 Total Protein (ALEA) Radiology Reviewed by me: Yes (MRI C/T/L-spine - small syrinx C6 o/w negative) EKG Reviewed by me: Yes (Tele - intermittent sinus tachycardia) Hospitalist ROS - Medication Medications: Active Medications Generic Name Dose Route Start Last Admin Trade Name Freq PRN Reason Stop Dose Admin Acetaminophen 650 mg 09/02/19 16:21 09/10/19 18:51 Tylenol PO 650 mg Q4H PRN Administration Headache/Fever/Mild Pain (1-3) Bisacodyl 10 mg 09/05/19 12:36 09/12/19 09:22 Dulcolax [place] 10 mg DAILYPRN PRN Administration Constipation Docusate Sodium 100 mg 09/05/19 21:00 09/13/19 09:07 Colace PO 100 mg BID JOE Administration Fluconazole 100 mg 09/12/19 09:00 09/13/19 09:07 Diflucan PO 100 mg DAILY JOE Administration Gabapentin 300 mg 09/03/19 15:00 09/13/19 14:49 Neurontin PO 300 mg TID JOE Administration Ceftriaxone Sodium 1 gm/ 100 mls @ 200 mls/hr 09/08/19 02:00 09/13/19 01:36 Sodium Chloride IVPB 100 mls Q24HR JOE Administration Metoprolol Tartrate 25 mg 09/12/19 21:00 09/13/19 09:07 Lopressor PO 25 mg BID JOE Administration Prednisone 40 mg 09/12/19 08:00 09/13/19 09:07 Prednisone PO 40 mg QAM-WM JOE Administration Sodium Chloride 10 ml 09/08/19 07:26 09/11/19 02:06 Flush - Normal Saline IVF 10 ml PRN PRN Administration Saline Flush - Exam General Appearance: NAD, awake alert Eye: PERRL, anicteric sclera ENT: normocephalic atraumatic, no oropharyngeal lesions Neck: supple, symmetric, no JVD, no thyromegaly Heart: RRR, no murmur, no gallops, no rubs, normal peripheral pulses Respiratory: CTAB, no wheezes, no rales, no ronchi Gastrointestinal: soft, non-tender, non-distended, normal bowel sounds Extremities: no cyanosis, no clubbing, no edema Skin: normal turgor, no lesions Neurological: cranial nerve grossly intact Neurological - other findings: Muscle strength 2/5 U/LE's, areflexic Musculoskeletal: no muscle wasting, generalized weakness Psychiatric: normal affect, A&O x 3 Hosp A/P (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 PT/OT for mobilization Updated pt and parents Continue Prednisone 40mg po daily Continue Rocephin another 24h then d/c
[2019-09-14] MEDS: cefTRIAXone\\ROCEPHIN 1 GM in Sodium Chloride 0.9% 100 ML IVPB SCH (03:17)
[2019-09-14] MEDS: predniSONE 20 MG TAB PO SCH (09:32)
[2019-09-14] MEDS: Acetaminophen 325 MG TAB PO PRN (09:33)
[2019-09-14] MEDS: Fluconazole 100 MG TAB PO SCH (09:33)
[2019-09-14] MEDS: Metoprolol Tartrate 25 MG TAB PO SCH ×2 (09:33→20:06)
[2019-09-14] MEDS: Gabapentin 300 MG CAP PO SCH ×3 (09:33→20:06)
[2019-09-14] MEDS: Docusate 100 MG CAP PO SCH ×2 (09:33→20:07)
--- NOTE | 2019-09-14 16:40 | PDOC.HOSPP ---
- Subjective Encounter Date: 09/14/19 Encounter Time: 16:40 - Objective Vital Signs & Weight: Vital Signs (12 hours) Temp Pulse Pulse Resp BP BP Pulse Ox 09/14/19 15:36 98.6 F 110 H 20 132/76 97 09/14/19 14:10 119 H 138/84 09/14/19 11:58 98.2 F 95 16 126/75 96 09/14/19 08:00 98.0 F 86 16 108/55 L 95 09/14/19 07:40 95 Weight Admit Weight 189 lb 12.8 oz Weight 189 lb 12.8 oz I&O: 09/13/19 09/14/19 09/15/19 06:59 06:59 06:59 Intake Total 1120 1360 600 Output Total 1450 3200 Balance -330 -1840 600 Result Diagrams: 09/05/19 04:50 09/06/19 04:56 Hospitalist ROS - Medication Medications: Active Medications Generic Name Dose Route Start Last Admin Trade Name Freq PRN Reason Stop Dose Admin Acetaminophen 650 mg 09/02/19 16:21 09/14/19 09:33 Tylenol PO 650 mg Q4H PRN Administration Headache/Fever/Mild Pain (1-3) Bisacodyl 10 mg 09/05/19 12:36 09/12/19 09:22 Dulcolax [place] 10 mg DAILYPRN PRN Administration Constipation Docusate Sodium 100 mg 09/05/19 21:00 09/14/19 09:33 Colace PO 100 mg BID JOE Administration Fluconazole 100 mg 09/12/19 09:00 09/14/19 09:33 Diflucan PO 100 mg DAILY JOE Administration Gabapentin 300 mg 09/03/19 15:00 09/14/19 14:56 Neurontin PO 300 mg TID JOE Administration Ceftriaxone Sodium 1 gm/ 100 mls @ 200 mls/hr 09/08/19 02:00 09/14/19 03:17 Sodium Chloride IVPB 100 mls Q24HR JOE Administration Metoprolol Tartrate 25 mg 09/12/19 21:00 09/14/19 09:33 Lopressor PO 25 mg BID JOE Administration Prednisone 40 mg 09/12/19 08:00 09/14/19 09:32 Prednisone PO 40 mg QAM-WM JOE Administration Sodium Chloride 10 ml 09/08/19 07:26 09/11/19 02:06 Flush - Normal Saline IVF 10 ml PRN PRN Administration Saline Flush Hosp A/P (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 coli UTI Code(s): N39.0 - URINARY TRACT INFECTION, SITE NOT SPECIFIED; B96.20 - UNSP ESCHERICHIA COLI THE CAUSE OF DISEASES CLASSD ELSWHR Status: Acute - Plan Continue supportive mgmt MRI brain/spinal column essentially negative Coordinate for transfer to higher level of care and plasmapheresis, awaiting [facility] PT/OT for mobilization Updated pt and parents Continue Prednisone 40mg po daily Continue Rocephin another 24h then d/c
[2019-09-14 20:19] VITALS: BP 131/68; TEMP 98.2
--- NOTE | 2019-09-15 05:16 | DIS ---
DATE OF ADMISSION: 09/02/2019 DATE OF DISCHARGE: 09/14/2019 DISCHARGE DIAGNOSES: 1. Guillain-Gotham syndrome, suspected. 2. Neurogenic bladder secondary to #1. 3. Quadriparesis secondary to #1. 4. Sinus tachycardia, improved. 5. Escherichia coli urinary tract infection. CONSULTATIONS: 1. Dr. Keith Benitez with Neurology Service. 2. Dr. Crys Eduardo with Urology Service. PERTINENT LABORATORY AND X-RAY FINDINGS: Basic metabolic profile within normal limits. Ammonia level 24. Magnesium level 2.0. BNP 16.8. Serum total protein ranged between 9.3 to 10.0, gamma globulins 3.5, M-spike not observed. Serum protein electrophoresis dated 09/03/2019 showed pattern reflective of polyclonal increase in gamma globulin due to numerous clones of plasma cells producing heterogeneous antibody in response to antigenic stimulus. Vitamin B12 and folate level within normal limits. Free T4 level 1.1. TSH 0.50. Serum beta-hCG negative, 09/02/2019. CBC showed a white blood cell count ranged between 7.4 to 13.3, hemoglobin ranged between 12.2 to 14.9. Urine drug screen dated 09/02/2019, negative. Plasma alcohol level less than 10. Total protein 8.9, albumin 3.2. Urine culture dated 09/05/2019, showed no growth at 48 hours. Urine culture dated 09/08/2019, showed greater than 100,000 colonies of E coli, pansensitive except for ampicillin. Portable chest x-ray dated 09/02/2019, showed no acute cardiopulmonary process. 2D transthoracic echocardiogram dated 09/04/2019, showed ejection fraction 50% to 55%. Mild mitral and tricuspid regurgitation. MRI of the brain dated 09/11/2019, showed no acute intracranial process. Paranasal sinus mucosal disease. MRI of the cervical spine dated 09/13/2019, showed small syrinx within the cervical cord at C6. MRI of the thoracic and lumbar spine, negative. HOSPITAL COURSE: The patient was initially admitted to the stroke unit after presenting with bilateral upper and lower extremity paresthesias and numbness of acute onset. The patient underwent general evaluation for questionable polyneuropathy and general weakness. The patient was initially noted with areflexia and profound weakness. The patient was noted with elevated total protein in the serum and elevated globulin levels. The patient was evaluated by the Neurology Service with recommendations to initiate IVIG after concern for potential Guillain-Gotham syndrome. The patient received two doses of IVIG and monitored for clinical response. The patient did clinically improve in the first 24 to 48 hours after IVIG therapy and was able to stand and ambulate short distances with physical therapy. The patient decompensated after approximately another 48 hours with increased weakness and inability to sit or stand. The patient was also noted with concomitant sinus tachycardia and placed on metoprolol for rate control. The patient was also noted with urinary retention, prompting Urology consultation, at which point patient underwent Damico catheter insertion for decompression and monitoring. MRI imaging of the brain and entire spinal column showed a small syrinx in the cervical column without cord compression. Exact etiology of the patient's presentation was unclear. Due to the patient's decompensation, discussions were had regarding transfer to higher level of care for consideration of plasmapheresis. The patient did receive approximately three doses of prednisone 40 mg daily after concern from Neurology service for concern for a chronic inflammatory demyelinating polyneuropathy. The patient had some mild improvement in overall strength and able to stand short timeframe at the bedside. The patient's reflexes remained absent; however, the patient was maintaining an airway and did not require oxygen supplementation. The patient was able to tolerate regular oral intake throughout the hospital course with essentially stable vital signs. Due to the patient's persistent symptoms without response to current therapy, the patient will be transferred to [facility] for more comprehensive evaluation and consideration for plasmapheresis. I have examined the patient at the time of discharge and discussed followup instructions. The patient verbalized understanding and ready for discharge and transferred to [place], [place] on 09/14/2019. MEDICATIONS: Medications at the time of discharge: 1. Prednisone 40 mg p.o. q.a.m. 2. Metoprolol tartrate 25 mg p.o. b.i.d. 3. Rocephin 1 g IV q.24 hours. 4. Gabapentin 300 mg p.o. t.i.d. FOLLOWUP: The patient will follow up with [facility] Neurology and Hospitalist Team on 09/14/2019. The patient may follow up with Dr. Crys Eduardo with Urology Service after discharge. CONDITION ON DISCHARGE: Fair. ACTIVITY: Ad-yessy. DIET: Regular. CODE STATUS: Full. DISPOSITION: Transferred to [facility], [place], [place], 09/14/2019. TIME SPENT: Total time preparing and coordinating discharge, 35 minutes. Job ID: [id number]
--- NOTE | 2019-09-16 16:53 | EKG ---
Test Reason : NUMBNESS Blood Pressure : / mmHG Vent. Rate : 080 BPM Atrial Rate : 080 BPM P-R Int : 142 ms QRS Dur : 094 ms QT Int : 372 ms P-R-T Axes : 038 037 039 degrees QTc Int : 429 ms Normal sinus rhythm Normal ECG Confirmed by ARABELLA GUZMAN, LIDIA ([id number]), acquisitions editor CHEMA RUBALCAVA ([id number] on 09/16/2019 4:53:07 PM Referred By: ARABELLA Confirmed By:LIDIA BELL MD
== END 2019-09-14 21:00 | disposition short-term general hospital (02) | DRG 94 ==
LOC: ERS 12:27 → ERHOLD 16:10 → 2SE 09-03 00:02
PROVIDERS: ADMIT Internal Medicine; ATTEND Internal Medicine
PROC: 30233S1 Transfusion of Nonautologous Globulin into Peripheral Vein, Percutaneous Approach (ICD-10-PCS; principal; 2019-09-02)
DX: G61.0 Guillain-Barre syndrome (principal); G82.50 Quadriplegia, unspecified; N39.0 Urinary tract infection, site not specified; G62.9 Polyneuropathy, unspecified; R33.9 Retention of urine, unspecified; R00.0 Tachycardia, unspecified; G43.909 Migraine, unspecified, not intractable, without status migrainosus; K59.00 Constipation, unspecified; N31.9 Neuromuscular dysfunction of bladder, unspecified; B96.20 Unspecified Escherichia coli [E. coli] as the cause of diseases classified elsewhere
CPT/HCPCS: 36415; 36416; 70553; 71045; 72156; 72157; 72158; 76770; 80048; 80053; 80306; 80307; 81001; 81003; 81015; 82140; 82550; 82607; 82746; 83690; 83735; 83880; 84165; 84439; 84443; 84484; 84703; 85025; 87077; 87086; 87186; 93005; 93010; 93306; 96360; 96361; J0696; J1568; J1650; J3490; J7512

== ENCOUNTER 2025-08-20 08:01 | Outpatient (CLI) | payer BC | END 2025-08-20 08:02 | disposition home or self-care (01) | LOC: CT 08:01 | PROVIDERS: ATTEND Student in an Organized Health Care Education/Training Program | DX: N39.0 Urinary tract infection, site not specified (principal); N21.0 Calculus in bladder; N13.9 Obstructive and reflux uropathy, unspecified; N32.3 Diverticulum of bladder; N32.89 Other specified disorders of bladder; N13.30 Unspecified hydronephrosis; R19.00 Intra-abdominal and pelvic swelling, mass and lump, unspecified site | CPT/HCPCS: 74178 ==